=== PATIENT | male | born 1995 | race Caucasian/White ===

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

== ENCOUNTER 2017-03-07 09:15 | Outpatient (RCR) | payer OTHER | END 2017-03-07 13:55 | disposition home or self-care (01) | LOC: WSC 09:15 | DX: Z47.89 Encounter for other orthopedic aftercare (principal); M25.811 Other specified joint disorders, right shoulder ==

== ENCOUNTER → 2017-05-17 | Outpatient (CLI) | payer OTHER ==
[~2017-05-17] MED LIST: COLACE 100100 MG/CAP PO; MOBIC15 MG PO; PERCOCET 325 MG1 TA2 PO; ZOFRAN 4MG T4 MG/TAB PO
== END ==
LOC: COL.RAD 09:51
DX: S43.402A Unspecified sprain of left shoulder joint, initial encounter (principal)
CPT/HCPCS: A9585; Q9967

== ENCOUNTER 2017-06-13 07:23 | Day surgery (SDC) | payer OTHER ==
[~2017-06-13] VITALS: Ht 188 cm; Wt 109.1 kg
[2017-06-13 08:14] VITALS: BP 133/80; PULSE 60; TEMP 98.2
[2017-06-13] MEDS ORDERED: PERCOCET 325 MG1 TA2 PO ×2 (09:04→10:50)
[2017-06-13 10:37] VITALS: BP 125/78; PULSE 77; TEMP 97.9
[2017-06-13] MEDS ORDERED: COLACE 100100 MG/CAP PO (10:48)
[2017-06-13] MEDS ORDERED: ZOFRAN 4MG T4 MG/TAB PO (10:49)
[2017-06-13] MEDS ORDERED: MOBIC15 MG PO (10:49)
[2017-06-13 10:52] VITALS: BP 112/66; PULSE 57
[2017-06-13 11:22] VITALS: BP 135/69; PULSE 47
== END 2017-06-13 12:05 | disposition home or self-care (01) ==
LOC: SDCO 07:23
DX: S43.492A Other sprain of left shoulder joint, initial encounter (principal)
CPT/HCPCS: OP; C1713; J0171; J0690; J1100; J2250; J2405; J2704; J3010; J7120

== ENCOUNTER 2017-09-15 07:30 | Outpatient (RCR) | payer OTHER | END 2017-09-18 | LOC: WSC | DX: Z47.89 Encounter for other orthopedic aftercare (principal); Z98.890 Other specified postprocedural states ==

== ENCOUNTER 2017-10-04 10:30 | Outpatient (RCR) | payer OTHER | END 2017-12-20 | disposition home or self-care (01) | LOC: WSPT | DX: Z47.89 Encounter for other orthopedic aftercare (principal); Z98.890 Other specified postprocedural states ==

== ENCOUNTER 2018-10-12 12:08 | Emergency (ER) | payer OTHER ==
[~2018-10-12] VITALS: Ht 190.5 cm; Wt 109.1 kg
[2018-10-12 12:13] VITALS: BP 152/83; TEMP 98.2
[2018-10-12 12:52] VITALS: PULSE 66
== END 2018-10-12 12:52 | disposition home or self-care (01) ==
LOC: COL.ER 12:08
DX: T59.811A Toxic effect of smoke, accidental (unintentional), initial encounter (principal)

== ENCOUNTER → 2020-03-08 | Outpatient (CLI) | payer OTHER | LOC: COL.LAB 15:55 | DX: U07.1 COVID-19 (principal) ==

== ENCOUNTER → 2022-04-06 | Outpatient (CLI) | payer OTHER | LOC: COL.RAD 09:10 | DX: R79.89 Other specified abnormal findings of blood chemistry (principal) ==